=== PATIENT | female | born 1970 | race Caucasian/White ===

== ENCOUNTER 2016-07-04 11:58 | Emergency (ER) | payer MEDICAID ==
[~2016-07-04] VITALS: Ht 157.5 cm; Wt 75.3 kg
[2016-07-04 12:03] VITALS: BP_SYST 160
[2016-07-04] MEDS ORDERED: DIPHENHYDRAMINE INJ 50 MG/ML VIAL IVP ONE (12:30)
[2016-07-04] MEDS ORDERED: MORPHINE 4 MG/ML INJ. SYRINGE IVP ONE (12:30)
[2016-07-04] MEDS ORDERED: PIPERACILLIN/TAZO 3.38 GM in NS 50 ML IV ONE (12:30)
[2016-07-04] MEDS ORDERED: PIPERACILLIN/TAZOBACTAM 3.375 GM/VIAL (ZOSYN) IV ONE (12:52)
[2016-07-04 12:58] LABS: BILIRUBIN,URINE NEGATIVE (NEGATIVE); CLARITY/URINE CLEAR (CLEAR); COLOR,URINE YELLOW (YELLOW); GLUCOSE,URINE TRACE (NEGATIVE); KETONES,URINE 1+ (NEGATIVE); LEUKOCYTE ESTERASE ,URINE NEGATIVE (NEGATIVE); NITRITE, URINE NEGATIVE (NEGATIVE); PROTEIN URINE NEGATIVE (NEGATIVE); UROBILINOGEN,URINE 0.2 (0.2-1.0)
[2016-07-04 13:02] LABS: BLOOD, URINE TRACE (NEGATIVE)
[2016-07-04 13:08] LABS: BASOPHILS # (AUTO) 0.1 K/uL (0.0-0.2); BASOPHILS % (AUTO) 1.2 % (0.0-2.0); EOSINOPHILS # (AUTO) 0.3 K/uL (0.0-0.4); EOSINOPHILS % (AUTO) 2.8 % (0.0-4.0); HEMATOCRIT 43.3 % (36-48); HEMOGLOBIN 14.5 g/dL (12.0-16.0); LYMPHOCYTES # (AUTO) 3.2 K/uL (1.0-5.5); LYMPHOCYTES % (AUTO) 28.6 % (20.5-51.5); MEAN CORPUSCULAR HEMOGLOBIN 30 pg (27-31); MEAN CORPUSCULAR HGB CONC 34 % (32-36); MEAN CORPUSCULAR VOLUME 88 fL (79.0-98.0); MONOCYTES # (AUTO) 0.5 K/uL (0.0-1.0); MONOCYTES % (AUTO) 4.6 % (1.7-9.3); NEUTROPHILS # (AUTO) 7.2 K/uL (1.8-7.7); NEUTROPHILS % (AUTO) 62.8 % (40.0-70.0); PLATELET COUNT (AUTO) 316 K/uL (130-430); RED BLOOD CELL COUNT(AUTO) 4.92 MIL/uL (4.2-6.2); RED CELL DISTRIBUTION WIDTH 12.9 % (9.0-15.0); WHITE BLOOD COUNT (AUTO) 11.3 K/uL (4.8-10.8)
[2016-07-04 13:10] LABS: BACTERIA,URINE FEW /HPF (None Seen); MUCUS,URINE 1+ /LPF (None Seen); WBC,URINE 0-3 /HPF (0-3)
[2016-07-04 13:20] LABS: CALCIUM 9.2 mg/dL (8.4-11.0); CREATININE 0.69 mg/dL (0.55-1.30); PROTHROMBIN TIME 10.5 SECS (9.5-12.5)
[2016-07-04 13:25] LABS: ALBUMIN 3.7 g/dL (3.4-4.8); TOTAL BILIRUBIN 0.6 mg/dL (0.0-1.0)
[2016-07-04 14:10] VITALS: BP_SYST 160
== END 2016-07-04 14:10 | disposition home or self-care (01) ==
LOC: SED 11:58
DX: R10.11 Right upper quadrant pain (principal); E11.9 Type 2 diabetes mellitus without complications; I10 Essential (primary) hypertension; E78.00 Pure hypercholesterolemia, unspecified; Z88.2 Allergy status to sulfonamides; Z91.02 Food additives allergy status; Z98.51 Tubal ligation status
CPT/HCPCS: 36415; 71010; 74176; 80053; 81000; 83605; 83690; 85025; 85610; 87040; 93005; 96365; 96375; 99285; J1200; J2270; J2543

== ENCOUNTER 2016-07-21 08:53 | Emergency (ER) | payer MEDICAID ==
[~2016-07-21] VITALS: Ht 157.5 cm; Wt 59.0 kg
[2016-07-21 09:02] VITALS: BP_SYST 129
--- NOTE | 2016-07-21 09:06 | NUR ---
Pt to bed 4
--- NOTE | 2016-07-21 09:09 | NUR ---
invasive cardiovascular technologist at bedside performing xray to rt foot
--- NOTE | 2016-07-21 09:11 | NUR ---
Pt presents to ED with Rt foot pain to 3rd, 4th, 5th toe. Pt reports falling last night but does not remember hitting her foot. Denies loss of consciousness. Denies head/neck injury or pain. No deformity, no redness, no swelling to rt foot toes. Able to wiggle toes. No acute distress. No other complaints/injuries per pt or noted.
--- NOTE | 2016-07-21 09:13 | NUR ---
Dr. Durbin at bedside examining patient. Also speaking with patient regarding recent narcotic prescription fills.
[2016-07-21 09:45] VITALS: BP_SYST 123
--- NOTE | 2016-07-21 09:45 | NUR ---
Patient given written and verbal discharge instructions and verbalizes understanding. ER MD discussed with patient the results and treatment provided. Patient in stable condition. ID arm band removed. No Rx given. Pt has newly filled [place] and tramadol at home. Patient educated on pain management and to follow up with PMD. Pain Scale 3/10 and tolerable. Ortho shoe placed to Rt foot. Opportunity for questions provided and answered.
== END 2016-07-21 09:45 | disposition home or self-care (01) ==
LOC: SED 08:53
DX: S90.121A Contusion of right lesser toe(s) without damage to nail, initial encounter (principal); E11.9 Type 2 diabetes mellitus without complications; I10 Essential (primary) hypertension; E78.00 Pure hypercholesterolemia, unspecified; Z91.02 Food additives allergy status; Z88.2 Allergy status to sulfonamides; W18.49XA Other slipping, tripping and stumbling without falling, initial encounter; Y93.89 Activity, other specified; Y92.89 Other specified places as the place of occurrence of the external cause; Y99.8 Other external cause status
CPT/HCPCS: 99284

== ENCOUNTER 2016-08-15 19:50 | Emergency (ER) | payer MEDICAID ==
[~2016-08-15] VITALS: Ht 157.5 cm; Wt 70.8 kg
[2016-08-15 20:03] VITALS: BP_SYST 129
[2016-08-15] MEDS ORDERED: HYDROcodone/ACETAMIN 5-325 MG TAB (NORCO/ VICODIN) PO ONE (20:30)
[2016-08-15 21:14] VITALS: BP_SYST 154
== END 2016-08-15 21:14 | disposition home or self-care (01) ==
LOC: SED 19:50
DX: R52 Pain, unspecified (principal); E11.9 Type 2 diabetes mellitus without complications; I10 Essential (primary) hypertension; E78.00 Pure hypercholesterolemia, unspecified; Z88.2 Allergy status to sulfonamides; Z91.02 Food additives allergy status; Z98.51 Tubal ligation status
CPT/HCPCS: 99283

== ENCOUNTER 2016-09-10 18:18 | Emergency (ER) | payer MEDICAID ==
[~2016-09-10] VITALS: Ht 157.5 cm; Wt 74.4 kg
[2016-09-10 18:23] VITALS: BP 148/64; PULSE 97; RESP 20; TEMP 97.8; O2SAT 98
--- NOTE | 2016-09-10 18:28 | NUR ---
Pt placed to ER waiting room in stable condition. Urine specimen collected and sent to lab.
[2016-09-10 19:03] LABS: BILIRUBIN,URINE NEGATIVE (NEGATIVE); BLOOD, URINE 3+ (NEGATIVE); CLARITY/URINE CLOUDY (CLEAR); COLOR,URINE YELLOW (YELLOW); GLUCOSE,URINE NEGATIVE (NEGATIVE); KETONES,URINE NEGATIVE (NEGATIVE); LEUKOCYTE ESTERASE ,URINE TRACE (NEGATIVE); NITRITE, URINE POSITIVE (NEGATIVE); PH,URINE 5.5 (5.0-8.0); PROTEIN URINE 2+ (NEGATIVE); UROBILINOGEN,URINE 0.2 (0.2-1.0)
[2016-09-10 19:14] LABS: BACTERIA,URINE MODERATE /HPF (None Seen); RBC,URINE 20-50 /HPF (0-3); WBC,URINE 20-50 /HPF (0-3)
[2016-09-10 19:15] LABS: MUCUS,URINE 1+ /LPF (None Seen)
--- NOTE | 2016-09-10 19:27 | NUR ---
Patient to [facility] for evaluation. Side rails up. Report given to Wade ALVARADO.
--- NOTE | 2016-09-10 19:30 | NUR ---
PT IN [facility] WITH COMPLAINTS OF UTI SYMPTOMS. DR REGI SHARMA.
--- NOTE | 2016-09-10 19:40 | NUR ---
ER at [facility] with pt in wheelchair examining patient.
[2016-09-10 19:50] VITALS: BP 138/78; PULSE 89; RESP 18; TEMP 97.8; O2SAT 98
--- NOTE | 2016-09-10 19:59 | NUR ---
Patient given written and verbal discharge instructions and verbalizes understanding. ER MD dudley discussed with patient the results provided. Patient in stable condition. ID arm band removed. . Rx of pyridium and nitrofurantoin given. Patient educated on pain management and to follow up with PMD. Pain Scale 1/10. Opportunity for questions provided and answered.
--- NOTE | 2016-09-12 13:20 | NUR ---
Final C & S report reviewed identified organism is suseptible to Macrobid as previously prescribed. No further action is indicated.
== END 2016-09-10 19:50 | disposition home or self-care (01) ==
LOC: SED 18:18
DX: N39.0 Urinary tract infection, site not specified (principal); R31.9 Hematuria, unspecified; E11.9 Type 2 diabetes mellitus without complications; I10 Essential (primary) hypertension; E78.00 Pure hypercholesterolemia, unspecified; Z88.2 Allergy status to sulfonamides; Z91.02 Food additives allergy status; Z98.51 Tubal ligation status
CPT/HCPCS: 81000-TC; 87086; 87186-TC; 99284

== ENCOUNTER 2016-10-16 11:05 | Emergency (ER) | payer MEDICAID ==
[~2016-10-16] VITALS: Ht 157.5 cm; Wt 78.0 kg
[2016-10-16 11:09] VITALS: BP_SYST 156
[2016-10-16 11:35] LABS: BILIRUBIN,URINE NEGATIVE (NEGATIVE); BLOOD, URINE 3+ (NEGATIVE); CLARITY/URINE SL CLOUDY (CLEAR); COLOR,URINE YELLOW (YELLOW); GLUCOSE,URINE 3+ (NEGATIVE); KETONES,URINE 3+ (NEGATIVE); LEUKOCYTE ESTERASE ,URINE TRACE (NEGATIVE); NITRITE, URINE POSITIVE (NEGATIVE); PH,URINE 5.5 (5.0-8.0); PROTEIN URINE 2+ (NEGATIVE); UROBILINOGEN,URINE 0.2 (0.2-1.0)
[2016-10-16 11:43] LABS: BACTERIA,URINE MODERATE /HPF (None Seen); RBC,URINE 20-50 /HPF (0-3); YEAST,URINE Few /HPF (None Seen)
[2016-10-16] MEDS ORDERED: DIPHENHYDRAMINE INJ 50 MG/ML VIAL IVP ONE (12:00)
[2016-10-16] MEDS ORDERED: MORPHINE 4 MG/ML INJ. SYRINGE IVP ONE (12:00)
[2016-10-16] MEDS ORDERED: PIPERACILLIN/TAZO 3.38 GM in NS 50 ML IV ONE (12:00)
[2016-10-16] MEDS ORDERED: PIPERACILLIN/TAZOBACTAM 3.375 GM/VIAL (ZOSYN) IV ONE (12:40)
[2016-10-16 12:50] LABS: BASOPHILS # (AUTO) 0.1 K/uL (0.0-0.2); BASOPHILS % (AUTO) 0.6 % (0.0-2.0); EOSINOPHILS # (AUTO) 0.2 K/uL (0.0-0.4); EOSINOPHILS % (AUTO) 1.4 % (0.0-4.0); HEMATOCRIT 42.9 % (36-48); LYMPHOCYTES # (AUTO) 2.9 K/uL (1.0-5.5); LYMPHOCYTES % (AUTO) 24.3 % (20.5-51.5); MEAN CORPUSCULAR HEMOGLOBIN 29 pg (27-31); MEAN CORPUSCULAR HGB CONC 33 % (32-36); MEAN CORPUSCULAR VOLUME 90 fL (79.0-98.0); MONOCYTES # (AUTO) 0.6 K/uL (0.0-1.0); MONOCYTES % (AUTO) 5.1 % (1.7-9.3); NEUTROPHILS # (AUTO) 8.3 K/uL (1.8-7.7); NEUTROPHILS % (AUTO) 68.6 % (40.0-70.0); PLATELET COUNT (AUTO) 361 K/uL (130-430); RED BLOOD CELL COUNT(AUTO) 4.77 MIL/uL (4.2-6.2); RED CELL DISTRIBUTION WIDTH 13.2 % (9.0-15.0); WHITE BLOOD COUNT (AUTO) 12.1 K/uL (4.8-10.8)
[2016-10-16 12:55] LABS: CALCIUM 8.6 mg/dL (8.4-11.0); CREATININE 0.64 mg/dL (0.55-1.30)
[2016-10-16 12:57] LABS: PROTHROMBIN TIME 10.5 SECS (9.5-12.5)
[2016-10-16 13:12] LABS: ALBUMIN 3.9 g/dL (3.4-4.8); TOTAL BILIRUBIN 0.6 mg/dL (0.0-1.0); TOTAL PROTEIN, SERUM 8.1 g/dL (6.4-8.3)
[2016-10-16 14:32] VITALS: BP_SYST 142
== END 2016-10-16 14:31 | disposition home or self-care (01) ==
LOC: SED 11:05
DX: N39.0 Urinary tract infection, site not specified (principal); E11.40 Type 2 diabetes mellitus with diabetic neuropathy, unspecified; I10 Essential (primary) hypertension; E78.00 Pure hypercholesterolemia, unspecified; Z88.2 Allergy status to sulfonamides; Z91.018 Allergy to other foods
CPT/HCPCS: 36415; 74176; 80053; 81000; 83605; 83690; 85025; 85610; 87040; 87086; 87186; 93005; 96365; 96375; 99285; J1200; J2270; J2543

== ENCOUNTER 2016-12-26 00:42 | Emergency (ER) | payer MEDICAID ==
[~2016-12-26] VITALS: Ht 157.5 cm; Wt 72.6 kg
[2016-12-26 01:30] VITALS: BP_SYST 157
--- NOTE | 2016-12-26 01:30 | NUR ---
Patient to ER bed 3 to gown for evaluation. Side rails up. Report given to JENNY CALL.
--- NOTE | 2016-12-26 01:39 | NUR ---
Patient to ER C/O animal bite to left hand. Patient states that she got bit while trying to save another smaller dog. Patient refuses to provide more information regarding the animal bite. Superficial puncture wounds to left hand, no bleeding, reddness surrounding the puncture wounds. C/O pain 10/23. AAOx4, unlabored breathing, no signs of acute distress.
--- NOTE | 2016-12-26 01:42 | NUR ---
Patient refuses to file a dog bite complaint. Patient refuses to provide information about the place of injury, dog information, dog's data conversion analyst info. Patient states "i know for sure that the dog has all the shots" Patient advised that if at any time she changes her mind, she can file a report through the [facility] animal bite report.
--- NOTE | 2016-12-26 01:46 | NUR ---
ER MD Cody at bedside for evaluation
[2016-12-26] MEDS ORDERED: ceFAZolin SODIUM 1 GM VIAL IM ONE (02:00)
[2016-12-26] MEDS ORDERED: DIPH-TET-PERTUS Vaccine 0.5 ML VIAL (ADACEL) IM ONE (02:00)
[2016-12-26] MEDS ORDERED: BACITRACIN 1 GM OINT TP ONE (02:00)
--- NOTE | 2016-12-26 02:20 | NUR ---
15 minutes after administration of ancef, TDAP & bacitracin. No adverse reactions noted. Will continue to monitor.
[2016-12-26] MEDS ORDERED: KETOROLAC TROMETHAMINE 60 MG/2 ML VIAL IM ONE (02:30)
--- NOTE | 2016-12-26 02:40 | NUR ---
Patient reports pain 3/10 15 minutes after administration of todadol. No adverse reactions noted. Will continue to monitor.
[2016-12-26 03:08] VITALS: BP_SYST 119
--- NOTE | 2016-12-26 03:08 | NUR ---
Patient given written and verbal discharge instructions and verbalizes understanding. ER MD Cody discussed with patient the results and treatment provided. Patient in stable condition. ID arm band removed. Rx of ibuprofen & augmentin given. Patient educated on pain management and to follow up with PMD. Pain Scale 0/10. Opportunity for questions provided and answered.
== END 2016-12-26 03:08 | disposition home or self-care (01) ==
LOC: SED 00:42
DX: S61.452A Open bite of left hand, initial encounter (principal); E11.9 Type 2 diabetes mellitus without complications; I10 Essential (primary) hypertension; M79.7 Fibromyalgia; E78.00 Pure hypercholesterolemia, unspecified; Z88.2 Allergy status to sulfonamides; W54.0XXA Bitten by dog, initial encounter; Y93.89 Activity, other specified; Y92.89 Other specified places as the place of occurrence of the external cause; Y99.8 Other external cause status
CPT/HCPCS: 90471; 90715; 96372; 99284; J0690; J1885

== ENCOUNTER 2017-03-14 10:48 | Emergency (ER) | payer MEDICAID ==
[~2017-03-14] VITALS: Ht 157.5 cm; Wt 74.8 kg
[2017-03-14 10:51] VITALS: BP_SYST 146
[2017-03-14 11:36] LABS: BILIRUBIN,URINE NEGATIVE (NEGATIVE); BLOOD, URINE NEGATIVE (NEGATIVE); CLARITY/URINE CLEAR (CLEAR); COLOR,URINE YELLOW (YELLOW); GLUCOSE,URINE 3+ (NEGATIVE); KETONES,URINE TRACE (NEGATIVE); LEUKOCYTE ESTERASE ,URINE NEGATIVE (NEGATIVE); NITRITE, URINE NEGATIVE (NEGATIVE); PROTEIN URINE NEGATIVE (NEGATIVE); UROBILINOGEN,URINE 0.2 (0.2-1.0)
[2017-03-14 11:44] LABS: BACTERIA,URINE RARE /HPF (None Seen); MUCUS,URINE 1+ /LPF (None Seen); RBC,URINE 0-3 /HPF (0-3); WBC,URINE 0-3 /HPF (0-3)
[2017-03-14 12:07] VITALS: BP_SYST 130
== END 2017-03-14 12:07 | disposition home or self-care (01) ==
LOC: SED 10:48
DX: S39.011A Strain of muscle, fascia and tendon of abdomen, initial encounter (principal); E11.40 Type 2 diabetes mellitus with diabetic neuropathy, unspecified; I10 Essential (primary) hypertension; E78.00 Pure hypercholesterolemia, unspecified; Z88.2 Allergy status to sulfonamides; Z98.51 Tubal ligation status; Z91.02 Food additives allergy status; X58.XXXA Exposure to other specified factors, initial encounter; Y93.89 Activity, other specified; Y92.89 Other specified places as the place of occurrence of the external cause; Y99.8 Other external cause status
CPT/HCPCS: 81000-TC; 81025; 99283

== ENCOUNTER 2017-05-08 02:29 | Emergency (ER) | payer MEDICAID ==
[~2017-05-08] VITALS: Ht 157.5 cm; Wt 70.3 kg
[2017-05-08 02:30] VITALS: BP_SYST 154
--- NOTE | 2017-05-08 02:30 | NUR ---
Pt states that around 0200, pt started having SOB with chest pain. She has been recently sick and has had a productive cough for about a month. Pt reports chest wall tenderness and pain with inspiration. Pt was very anxious and tearful. Lung sounds clear bilateraly. Will continue to monitor.
--- NOTE | 2017-05-08 02:30 | NUR ---
Patient to ER bed 4 to gown for evaluation. Side rails up. Report given to Octavio ALVARADO.
--- NOTE | 2017-05-08 02:32 | NUR ---
ER Dr. Fong at bedside examining patient.
--- NOTE | 2017-05-08 02:58 | NUR ---
# 20 gauge angiocath placed to L wrist. Use of asceptic technique. Opsite placed over site. Blood return noted. Flushed with 10 cc of normal saline. No evidence of infiltration noted. Patient tolerated well.
[2017-05-08] MEDS: MAGNESIUM SULFATE 50 ML IV ONE (03:02)
[2017-05-08] MEDS: PROMETHAZINE HCL 25 MG/ML AMP IVP ONE (03:03)
[2017-05-08] MEDS: KETOROLAC TROMETHAMINE 30 MG VIAL IVP ONE (03:03)
[2017-05-08] MEDS: NACL 0.9% 1,000 ML IV ONE ×2 (03:04→03:34)
[2017-05-08 03:08] LABS: MEAN CORPUSCULAR HEMOGLOBIN 29 pg (27-31); MEAN CORPUSCULAR VOLUME 88 fL (79.0-98.0)
[2017-05-08 03:11] LABS: BASOPHILS % (AUTO) 0.2 % (0.0-2.0); HEMATOCRIT 44.5 % (36-48); HEMOGLOBIN 14.9 g/dL (12.0-16.0); LYMPHOCYTES # (AUTO) 1.3 K/uL (1.0-5.5); LYMPHOCYTES % (AUTO) 11.2 % (20.5-51.5); MEAN CORPUSCULAR HGB CONC 34 % (32-36); MONOCYTES # (AUTO) 0.1 K/uL (0.0-1.0); MONOCYTES % (AUTO) 0.5 % (1.7-9.3); NEUTROPHILS # (AUTO) 10.3 K/uL (1.8-7.7); NEUTROPHILS % (AUTO) 88.1 % (40.0-70.0); PLATELET COUNT (AUTO) 370 K/uL (130-430); RED BLOOD CELL COUNT(AUTO) 5.06 MIL/uL (4.2-6.2); RED CELL DISTRIBUTION WIDTH 12.5 % (9.0-15.0); WHITE BLOOD COUNT (AUTO) 11.7 K/uL (4.8-10.8)
[2017-05-08 03:16] LABS: ANION GAP 15 (5-15); CALCIUM 9.2 mg/dL (8.4-11.0); CHLORIDE 100 mmol/L (98-107); CREATININE 0.92 mg/dL (0.55-1.30); POTASSIUM 3.9 mmol/L (3.5-5.1); SODIUM SERUM 137 mmol/L (136-145); UREA NITROGEN, BLOOD 17 mg/dL (8-21)
[2017-05-08 03:19] LABS: GFR AFRICAN AMERICAN 84 mL/min (>90)
[2017-05-08 03:21] LABS: INR 0.9 (0.8-1.2); PROTHROMBIN TIME 9.6 SECS (9.5-12.5)
[2017-05-08 03:25] LABS: ALANINE AMINOTRANSFERASE 85 U/L (12-78); ALBUMIN 3.7 g/dL (3.4-4.8); ASPARTATE AMINOTRANSFERASE 54 U/L (10-37); TOTAL BILIRUBIN 0.4 mg/dL (0.0-1.0)
[2017-05-08 03:26] LABS: GLUCOSE 468 mg/dL (70-99)
[2017-05-08] MEDS: INSULIN REGULAR, HUMAN 10 UNITS/0.1 ML INJ IVP ONE (05:15)
[2017-05-08 05:55] VITALS: BP_SYST 127
--- NOTE | 2017-05-08 05:55 | NUR ---
Patient given written and verbal discharge instructions and verbalizes understanding. ER MD discussed with patient the results and treatment provided. Patient in stable condition. ID arm band removed. IV catheter removed intact and dressing applied, no active bleeding. Rx of Phenergan with codeine given. Patient educated on pain management and to follow up with PMD. Pain Scale 0/10. Opportunity for questions provided and answered.
--- NOTE | 2017-05-16 19:29 | NUR ---
Late entry for 05/08/17 for 0302. Pt was getting Magnesium for two hours IVPB running at 25 mls/hr at 0302 to 0502.
== END 2017-05-08 05:55 | disposition home or self-care (01) ==
LOC: SED 02:29
DX: J06.9 Acute upper respiratory infection, unspecified (principal); E11.65 Type 2 diabetes mellitus with hyperglycemia; J45.909 Unspecified asthma, uncomplicated; I10 Essential (primary) hypertension; E78.00 Pure hypercholesterolemia, unspecified; Z88.2 Allergy status to sulfonamides; Z91.018 Allergy to other foods
CPT/HCPCS: 36415; 71045; 80053; 82962; 84484; 85025; 85610; 85730; 86710; 93005; 96365; 96366; 96375; 99285; J1885; J2550; J3475; J7030; J1815

== ENCOUNTER 2017-12-21 02:00 | Emergency (ER) | payer MEDICAID ==
[~2017-12-21] VITALS: Ht 157.5 cm; Wt 74.8 kg
[2017-12-21 02:08] VITALS: BP_SYST 153
[2017-12-21] MEDS ORDERED: KETOROLAC TROMETHAMINE 30 MG VIAL IM ONE (02:45)
[2017-12-21] MEDS ORDERED: HYDROcodone/ACETAMIN 7.5-325 MG TAB PO ONE (02:45)
[2017-12-21 03:15] VITALS: BP_SYST 140
== END 2017-12-21 03:15 | disposition home or self-care (01) ==
LOC: SED 02:00
DX: S93.601A Unspecified sprain of right foot, initial encounter (principal); I10 Essential (primary) hypertension; M79.7 Fibromyalgia; E11.40 Type 2 diabetes mellitus with diabetic neuropathy, unspecified; E78.5 Hyperlipidemia, unspecified; Z98.51 Tubal ligation status; X50.1XXA Overexertion from prolonged static or awkward postures, initial encounter; Y93.01 Activity, walking, marching and hiking; Y92.096 Garden or yard of other non-institutional residence as the place of occurrence of the external cause; Y99.8 Other external cause status
CPT/HCPCS: 73630; 96372; 99284; J1885

== ENCOUNTER 2018-12-27 13:20 | Emergency (ER) | payer MEDICAID ==
[~2018-12-27] VITALS: Ht 157.5 cm; Wt 77.6 kg
[2018-12-27 13:29] VITALS: BP_SYST 149
--- NOTE | 2018-12-27 13:36 | NUR ---
Patient to ER bed 2 to gown for evaluation. Side rails up. Report given to CHAIM ALVARADO.
[2018-12-27] MEDS ORDERED: CYCLOBENZAPRINE HCL 10 MG TABLET (FLEXERIL) PO ONE (13:45)
[2018-12-27] MEDS ORDERED: KETOROLAC TROMETHAMINE 30 MG VIAL IM ONE (13:45)
--- NOTE | 2018-12-27 13:45 | NUR ---
Patient presented to ER with C/O Neck pain. Patient A&Ox4, afebrile, ambulatory to ER, denies N/V/D, pain 01/23. Patient states neck pain started last night. Patient states health hx of fibromyalgia and chronic pain
--- NOTE | 2018-12-27 13:50 | NUR ---
REGINALDO Cuevas at bedside examining patient.
[2018-12-27] MEDS ORDERED: MORPHINE 4 MG/ML INJ. SYRINGE IVP ONE (14:30)
[2018-12-27 15:25] VITALS: BP_SYST 149
--- NOTE | 2018-12-27 15:25 | NUR ---
Patient given written and verbal discharge instructions and verbalizes understanding. ER MD discussed with patient the results and treatment provided. Patient in stable condition. ID arm band removed. IV catheter removed intact and dressing applied, no active bleeding. Rx of naproxen given. Patient educated on pain management and to follow up with PMD. Pain Scale 6/10 tolerable for patient. Opportunity for questions provided and answered. Medication side effect fact sheet provided.
--- NOTE | 2018-12-27 16:40 | NUR ---
Note undone in EDM - 12/27/18 at 1724 by [email or web address] Patient given written and verbal discharge instructions and verbalizes understanding. ER discussed with patient the results and treatment provided. Patient in stable condition. ID arm band removed. IV catheter removed intact and dressing applied, no active bleeding. Rx of naproxen given. Patient educated on pain management and to follow up with PMD. Pain Scale 6/10 tolerable for patient. Opportunity for questions provided and answered. Medication side effect fact sheet provided.
== END 2018-12-27 15:25 | disposition home or self-care (01) ==
LOC: SED 13:20
DX: M54.2 Cervicalgia (principal); E11.9 Type 2 diabetes mellitus without complications; I10 Essential (primary) hypertension; E78.00 Pure hypercholesterolemia, unspecified; Z88.2 Allergy status to sulfonamides; Z91.018 Allergy to other foods
CPT/HCPCS: 96372; 96374; 99283; J1885; J2270

== ENCOUNTER 2020-09-24 23:43 | Emergency (ER) | payer MEDICAID ==
[~2020-09-24] VITALS: Ht 157.5 cm; Wt 77.6 kg
[2020-09-24 23:50] VITALS: BP_SYST 159
[2020-09-25] MEDS ORDERED: MORPHINE 2 MG/ML INJ. SYRINGE IVP ONE (04:15)
[2020-09-25] MEDS ORDERED: MORPHINE 2 MG/ML INJ. SYRINGE IM ONE (04:45)
[2020-09-25 05:55] VITALS: BP_SYST 122
== END 2020-09-25 05:55 | disposition home or self-care (01) ==
LOC: SED 23:43
DX: S09.90XA Unspecified injury of head, initial encounter (principal); I10 Essential (primary) hypertension; E11.9 Type 2 diabetes mellitus without complications; J45.909 Unspecified asthma, uncomplicated; Z88.2 Allergy status to sulfonamides; Z91.018 Allergy to other foods; W01.10XA Fall on same level from slipping, tripping and stumbling with subsequent striking against unspecified object, initial encounter; Y93.89 Activity, other specified; Y92.89 Other specified places as the place of occurrence of the external cause; Y99.8 Other external cause status
CPT/HCPCS: 70450; 70486; 71045; 72125; 76376; 96372; 99285; J2270

== ENCOUNTER 2021-01-05 18:09 | Emergency (ER) | payer MEDICAID ==
[~2021-01-05] VITALS: Ht 157.5 cm; Wt 78.9 kg
[2021-01-05 18:20] VITALS: BP_SYST 160
--- NOTE | 2021-01-05 18:25 | NUR ---
Pt triaged and placed in waiting room
--- NOTE | 2021-01-05 19:31 | NUR ---
Patient to ER bed H1 to gown for evaluation. Side rails up. Report given to LOYDA ALVARADO.
--- NOTE | 2021-01-05 19:33 | NUR ---
Urine specimen obtained and sent to lab for analysis.
--- NOTE | 2021-01-05 19:35 | NUR ---
Pt AAO and ambulatory reporting sudden onset of abdominal pain that radiates to left flank area that started at lunch time today. Pt reports that she was seen at the urgent care and referred here. Pt is Covid vaccinated and reports having nausea and vomiting for the past two days. Pt reports current pain level 10/10 on pain scale. Pt has history of HTN, DM, neuropathy, fibromyalgia, and shingles.
--- NOTE | 2021-01-05 19:50 | NUR ---
Lab at bedside for blood draw.
[2021-01-05 19:51] LABS: BILIRUBIN,URINE 1+ (NEGATIVE); BLOOD, URINE NEGATIVE (NEGATIVE); COLOR,URINE YELLOW (YELLOW); GLUCOSE,URINE NEGATIVE (NEGATIVE); KETONES,URINE NEGATIVE (NEGATIVE); LEUKOCYTE ESTERASE ,URINE NEGATIVE (NEGATIVE); NITRITE, URINE NEGATIVE (NEGATIVE); PH,URINE 5.5 (5.0-8.0); PROTEIN URINE NEGATIVE (NEGATIVE); UROBILINOGEN,URINE 0.2 (0.2-1.0)
[2021-01-05 20:01] LABS: BASOPHILS # (AUTO) 0.1 K/uL (0.0-0.2); BASOPHILS % (AUTO) 0.4 % (0.0-2.0); EOSINOPHILS # (AUTO) 0.2 K/uL (0.0-0.4); EOSINOPHILS % (AUTO) 1.5 % (0.0-4.0); HEMATOCRIT 39.4 % (36-48); HEMOGLOBIN 13.1 g/dL (12.0-16.0); LYMPHOCYTES # (AUTO) 1.6 K/uL (1.0-5.5); LYMPHOCYTES % (AUTO) 12.3 % (20.5-51.5); MEAN CORPUSCULAR HEMOGLOBIN 30 pg (27-31); MEAN CORPUSCULAR HGB CONC 33 % (32-36); MEAN CORPUSCULAR VOLUME 90 fL (79.0-98.0); MONOCYTES # (AUTO) 0.5 K/uL (0.0-1.0); NEUTROPHILS # (AUTO) 10.6 K/uL (1.8-7.7); NEUTROPHILS % (AUTO) 81.8 % (40.0-70.0); PLATELET COUNT (AUTO) 371 K/uL (130-430); RED BLOOD CELL COUNT(AUTO) 4.39 MIL/uL (4.2-6.2); RED CELL DISTRIBUTION WIDTH 13.9 % (9.0-15.0)
--- NOTE | 2021-01-05 20:05 | NUR ---
Dr. Broussard at bedside to assess.
[2021-01-05 20:15] LABS: CLARITY/URINE HAZY (CLEAR)
[2021-01-05 20:20] LABS: CREATININE 0.83 mg/dL (0.55-1.30)
[2021-01-05 20:26] LABS: ALBUMIN 3.8 g/dL (3.4-4.8); TOTAL BILIRUBIN 0.4 mg/dL (0.0-1.0)
[2021-01-05] MEDS ORDERED: KETOROLAC TROMETHAMINE 30 MG VIAL IVP ONE (20:30)
[2021-01-05 20:45] LABS: BACTERIA,URINE FEW /HPF (None Seen); MUCUS,URINE 3+ /LPF (None Seen); RBC,URINE NONE SEEN /HPF (0-3)
[2021-01-05] MEDS ORDERED: DICYCLOMINE HCL 10 MG CAPSULE PO ONE (21:00)
[2021-01-05] MEDS ORDERED: MORPHINE 4 MG INJ. 4 MG/ML VIAL IVP ONE (21:00)
[2021-01-05] MEDS ORDERED: DICYCLOMINE HCL 10 MG CAPSULE ONE (21:29)
--- NOTE | 2021-01-05 21:40 | NUR ---
Pt laying down on gurney tucked in with eyes closed. Pt appears to be resting comfortably in no distress.
[2021-01-05] MEDS ORDERED: IBUP-1969 PO (22:20)
[2021-01-05] MEDS ORDERED: DICY10CA13 PO (22:20)
[2021-01-05 22:25] VITALS: BP_SYST 160
--- NOTE | 2021-01-05 22:25 | NUR ---
Patient given written and verbal discharge instructions and verbalizes understanding. Dr. Bobo HAIR MD discussed with patient the results and treatment provided. Patient in stable condition. ID arm band removed. IV catheter removed intact and dressing applied, no active bleeding. Rx given per MD. Patient educated on pain management and to follow up with PMD. Pain Scale 0/10. Opportunity for questions provided and answered. Medication side effect fact sheet provided.
== END 2021-01-05 22:25 | disposition home or self-care (01) ==
LOC: SED 18:09
DX: G89.29 Other chronic pain (principal); R10.10 Upper abdominal pain, unspecified; I10 Essential (primary) hypertension; E11.9 Type 2 diabetes mellitus without complications; J45.909 Unspecified asthma, uncomplicated; Z88.2 Allergy status to sulfonamides; Z91.018 Allergy to other foods; Z79.899 Other long term (current) drug therapy
CPT/HCPCS: 36415; 80053; 81000; 81025; 83690; 85025; 96374; 96375; 99284; J1885; J2270

== ENCOUNTER 2021-02-03 22:03 | Emergency (ER) | payer MEDICAID ==
[~2021-02-03] VITALS: Ht 157.5 cm; Wt 78.0 kg
[~2021-02-03 22:03] MED LIST: DICY10CA13 PO; IBUP-1969 PO
[2021-02-03 22:05] VITALS: BP_SYST 153
--- NOTE | 2021-02-03 22:05 | NUR ---
Placed in room 6 . Placed on leather goods maker, blood pressure machine and pulse oximeter. To gown for exam. Side rails up. Report given to Tien ALVARADO.
--- NOTE | 2021-02-03 22:11 | NUR ---
ARRIVED TO ER WITH COMPLAINTS OF CP SINCE 2129 TODAY. PT WAS [employer] AND STARTED HGAVING CHEST PAIN. 01/23 PAIN. PT HAS A HISOTRY OF FIBRO MYALGIA AND WANTS TO MAKE SURE IT ISNT HEART RELATED. -MEDS HAVE BEEN TAKEN. + NAUSEA. PT IS A&OX4
--- NOTE | 2021-02-03 22:12 | NUR ---
ER at bedside examining patient.
[2021-02-03] MEDS ORDERED: KETOROLAC TROMETHAMINE 60 MG/2 ML VIAL IM ONE (22:15)
--- NOTE | 2021-02-03 22:29 | NUR ---
LAB AT BEDSIDE
--- NOTE | 2021-02-03 22:34 | NUR ---
XR AT BEDSIDE
[2021-02-03 23:05] LABS: HEMOGLOBIN 12.3 g/dL (12.0-16.0)
[2021-02-03 23:07] LABS: CALCIUM 9.2 mg/dL (8.4-11.0); CREATININE 0.82 mg/dL (0.55-1.30); POTASSIUM 3.6 mmol/L (3.5-5.1)
[2021-02-03 23:12] LABS: BASOPHILS # (AUTO) 0.1 K/uL (0.0-0.2); EOSINOPHILS # (AUTO) 0.3 K/uL (0.0-0.4); EOSINOPHILS % (AUTO) 2.3 % (0.0-4.0); HEMATOCRIT 37.3 % (36-48); LYMPHOCYTES # (AUTO) 3.7 K/uL (1.0-5.5); LYMPHOCYTES % (AUTO) 30.6 % (20.5-51.5); MEAN CORPUSCULAR HEMOGLOBIN 29 pg (27-31); MEAN CORPUSCULAR HGB CONC 33 % (32-36); MEAN CORPUSCULAR VOLUME 89 fL (79.0-98.0); MONOCYTES % (AUTO) 8.4 % (1.7-9.3); NEUTROPHILS % (AUTO) 57.7 % (40.0-70.0); PLATELET COUNT (AUTO) 363 K/uL (130-430); RED BLOOD CELL COUNT(AUTO) 4.18 MIL/uL (4.2-6.2); RED CELL DISTRIBUTION WIDTH 14.2 % (9.0-15.0); WHITE BLOOD COUNT (AUTO) 12.1 K/uL (4.8-10.8)
[2021-02-03 23:13] LABS: ALBUMIN 3.7 g/dL (3.4-4.8); TOTAL BILIRUBIN 0.2 mg/dL (0.0-1.0)
[2021-02-04] MEDS ORDERED: NAPR-690 PO (00:22)
[2021-02-04 00:31] VITALS: BP_SYST 124
--- NOTE | 2021-02-04 00:33 | NUR ---
Patient given written and verbal discharge instructions and verbalizes understanding. ER MD discussed with patient the results and treatment provided. Patient in stable condition. ID arm band removed. Rx of NAPROXEN given. Patient educated on pain management and to follow up with PMD. Pain Scale 1/10. Opportunity for questions provided and answered. Medication side effect fact sheet provided.
== END 2021-02-04 00:33 | disposition home or self-care (01) ==
LOC: SED 22:03
DX: S23.41XA Sprain of ribs, initial encounter (principal); R07.89 Other chest pain; I10 Essential (primary) hypertension; E11.9 Type 2 diabetes mellitus without complications; J45.909 Unspecified asthma, uncomplicated; E78.00 Pure hypercholesterolemia, unspecified; Z88.2 Allergy status to sulfonamides; Z91.018 Allergy to other foods; Z79.899 Other long term (current) drug therapy; X58.XXXA Exposure to other specified factors, initial encounter; Y93.89 Activity, other specified; Y92.89 Other specified places as the place of occurrence of the external cause; Y99.8 Other external cause status
CPT/HCPCS: 36415; 71045; 80053; 83880; 84484; 85025; 85379; 93005; 96372; 99285; J1885

== ENCOUNTER 2021-07-31 22:31 | Emergency (ER) | payer MEDICAID ==
[~2021-07-31] VITALS: Ht 157.5 cm; Wt 73.0 kg
[~2021-07-31 22:31] MED LIST changes: +NAPR-690 PO
[2021-07-31 22:43] VITALS: BP_SYST 143
--- NOTE | 2021-07-31 22:45 | NUR ---
Patient triaged and placed in waiting room. VS checked and patient appears in no acute distress at this time. Awaiting available bed, and MD notified of need for MSE.
--- NOTE | 2021-08-01 01:52 | NUR ---
Patient to ER bed 07 to gown for evaluation. Side rails up. Report given to JENNY SPICER
--- NOTE | 2021-08-01 02:00 | NUR ---
51 YR OLD FEMALE AOX4, AMBULATORY WITH COMPLAINT OF NECK PAIN AND RIGHT CHEST PAIN FOR 5 HPURS. PT IS VISIBLY CRYING IN PAIN, PT STATES "I AM GOING THROUGH ALOT". 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 PT REPORTS HISTORY OF DM, HIGH CHOLESTEROL, AND NEUROPATHY. MD AT THE BEDSIDE. WILL MONITOR NEEDED.
[2021-08-01] MEDS ORDERED: LORazepam 2 MG/ML VIAL IM ONE (02:30)
[2021-08-01] MEDS ORDERED: KETOROLAC TROMETHAMINE 30 MG VIAL IM ONE (02:30)
[2021-08-01] MEDS ORDERED: PRED20TA PO (03:52)
[2021-08-01] MEDS ORDERED: HYDR-3917 PO (03:52)
[2021-08-01] MEDS ORDERED: METH-634 PO (03:52)
--- NOTE | 2021-08-01 04:01 | NUR ---
pt discharged with homecare instructons and prescription. pt encouraged to avoid strenuous activities for 7 days and follow up with primary doctor. understanding verbalized. pt discharged via wheelchair to awaiting car with son. pt discharged with all belongings in stable condition.
[2021-08-01 04:05] VITALS: BP_SYST 141
== END 2021-08-01 04:05 | disposition home or self-care (01) ==
LOC: SED 22:31
DX: R07.89 Other chest pain (principal); J45.909 Unspecified asthma, uncomplicated; E11.9 Type 2 diabetes mellitus without complications; I10 Essential (primary) hypertension; Z88.2 Allergy status to sulfonamides; Z91.018 Allergy to other foods
CPT/HCPCS: 71045; 96374; 96375; 99284; J1885; J2060

== ENCOUNTER 2022-06-02 02:45 | Emergency (ER) | payer MEDICAID ==
[~2022-06-02] VITALS: Ht 157.5 cm; Wt 72.1 kg
[~2022-06-02 02:45] MED LIST changes: +HYDR-3917 PO; +METH-634 PO; +PRED20TA PO
[2022-06-02 03:00] VITALS: BP_SYST 162
--- NOTE | 2022-06-02 03:07 | NUR ---
Patient to ER bed 3 to gown for evaluation. Side rails up. Report given to Bran ALVARADO(reg).
--- NOTE | 2022-06-02 03:13 | NUR ---
ER at bedside examining patient.
[2022-06-02] MEDS ORDERED: KETOROLAC TROMETHAMINE 15 MG VIAL IVP ONE (03:15)
[2022-06-02] MEDS ORDERED: MORPHINE 4 MG INJ. 4 MG/ML VIAL IVP ONE (03:15)
[2022-06-02] MEDS ORDERED: ONDANSETRON HCL 4 MG/2 ML VIAL IVP ONE ×2 (03:15)
[2022-06-02] MEDS ORDERED: MORPHINE 4 MG INJ. 4 MG/ML VIAL IM ONE (03:30)
[2022-06-02] MEDS ORDERED: ONDANSETRON 4 MG ODT TAB PO ONE (03:30)
[2022-06-02] MEDS ORDERED: KETOROLAC TROMETHAMINE 15 MG VIAL IM ONE (03:30)
[2022-06-02 03:55] LABS: BASOPHILS # (AUTO) 0.1 K/uL (0.0-0.2); BASOPHILS % (AUTO) 0.9 % (0.0-2.0); EOSINOPHILS # (AUTO) 0.1 K/uL (0.0-0.4); EOSINOPHILS % (AUTO) 1.3 % (0.0-4.0); HEMATOCRIT 40.5 % (36-48); HEMOGLOBIN 13.7 g/dL (12.0-16.0); LYMPHOCYTES # (AUTO) 3.4 K/uL (1.0-5.5); LYMPHOCYTES % (AUTO) 32.1 % (20.5-51.5); MEAN CORPUSCULAR HEMOGLOBIN 30 pg (27-31); MEAN CORPUSCULAR HGB CONC 34 % (32-36); MEAN CORPUSCULAR VOLUME 89 fL (79.0-98.0); MONOCYTES # (AUTO) 0.7 K/uL (0.0-1.0); MONOCYTES % (AUTO) 6.9 % (1.7-9.3); NEUTROPHILS # (AUTO) 6.2 K/uL (1.8-7.7); NEUTROPHILS % (AUTO) 58.8 % (40.0-70.0); PLATELET COUNT (AUTO) 341 K/uL (130-430); RED BLOOD CELL COUNT(AUTO) 4.55 MIL/uL (4.2-6.2); WHITE BLOOD COUNT (AUTO) 10.5 K/uL (4.8-10.8)
[2022-06-02 04:12] LABS: CALCIUM 9.1 mg/dL (8.4-11.0); CREATININE 0.6 mg/dL (0.55-1.30)
[2022-06-02 04:16] LABS: ALBUMIN 3.6 g/dL (3.4-4.8); TOTAL BILIRUBIN 0.3 mg/dL (0.0-1.0)
[2022-06-02] MEDS ORDERED: TAMS-11 PO (05:20)
[2022-06-02] MEDS ORDERED: HYDR-3917 PO (05:20)
[2022-06-02] MEDS ORDERED: IBUP-1970 PO (05:20)
--- NOTE | 2022-06-02 06:32 | NUR ---
Patient given written and verbal discharge instructions and verbalizes understanding. ER MD discussed with patient the results and treatment provided. Patient in stable condition. Rx of given. Patient educated on pain management and to follow up with PMD. Pain Scale []. Opportunity for questions provided and answered. Medication side effect fact sheet provided.
== END 2022-06-02 06:29 | disposition home or self-care (01) ==
LOC: SED 02:45
DX: N20.0 Calculus of kidney (principal); R10.9 Unspecified abdominal pain; R11.10 Vomiting, unspecified; J45.909 Unspecified asthma, uncomplicated; E11.9 Type 2 diabetes mellitus without complications; I10 Essential (primary) hypertension; Z91.018 Allergy to other foods; Z88.2 Allergy status to sulfonamides; Z79.899 Other long term (current) drug therapy
CPT/HCPCS: 99285; 74176; 80053; 83690; 85025; 36415; 76376; 96372; Q0162; J1885; J2270

== ENCOUNTER 2022-06-26 17:34 | Emergency (ER) | payer MEDICAID ==
[~2022-06-26] VITALS: Ht 157.5 cm; Wt 69.4 kg
[~2022-06-26 17:34] MED LIST changes: +IBUP-1970 PO; +TAMS-11 PO
[2022-06-26 18:07] VITALS: BP_SYST 129
--- NOTE | 2022-06-26 18:11 | NUR ---
Patient triaged and placed in waiting room. VSS and patient appears in no acute distress at this time. Accompanied by self, awaiting available bed, and MD notified of need for MSE.
[2022-06-26] MEDS ORDERED: NAPR-1172 PO (20:21)
--- NOTE | 2022-06-26 20:22 | NUR ---
Patient placed in ER chair 2 for evaluation.
--- NOTE | 2022-06-26 20:24 | NUR ---
Dr. Drake at bedside examining the patient.
--- NOTE | 2022-06-26 20:28 | NUR ---
Patient given written and verbal discharge instructions by Dr. Drake and verbalizes understanding. ER MD discussed with patient the results and treatment provided. Patient in stable condition. ID arm band removed. Rx of Naproxen given. Patient educated on pain management and to follow up with PMD. Pain Scale 0/10. Opportunity for questions provided and answered. Medication side effect fact sheet provided.
--- NOTE | 2022-06-26 20:32 | NUR ---
Gina robledo in EDM - 06/26/22 at 2119 by GUILLERMO Patient placed in ER CHAIR 1 for evaluation. Instructed patient to notify ED staff for any changes in condition or worsening of symptoms. Patient verbalized understanding.
--- NOTE | 2022-06-26 20:34 | NUR ---
Gina robledo in [facility] - 06/26/[email or web address] Drake is at bedside examining the patient.
[2022-06-26 20:39] VITALS: BP_SYST 118
== END 2022-06-26 20:39 | disposition home or self-care (01) ==
LOC: SED 17:34
DX: S86.812A Strain of other muscle(s) and tendon(s) at lower leg level, left leg, initial encounter (principal); J45.909 Unspecified asthma, uncomplicated; E11.9 Type 2 diabetes mellitus without complications; I10 Essential (primary) hypertension; Z88.2 Allergy status to sulfonamides; Z91.018 Allergy to other foods; Z79.899 Other long term (current) drug therapy; X58.XXXA Exposure to other specified factors, initial encounter; Y93.89 Activity, other specified; Y92.89 Other specified places as the place of occurrence of the external cause; Y99.8 Other external cause status
CPT/HCPCS: 93970; 99284

== ENCOUNTER 2022-10-16 14:14 | Emergency (ER) | payer MEDICAID ==
[~2022-10-16] VITALS: Ht 157.5 cm; Wt 63.5 kg
[~2022-10-16 14:14] MED LIST changes: +NAPR-1172 PO
[2022-10-16 14:57] VITALS: BP_SYST 150; PULSE 71; RESP 16; TEMP 97.8
== END 2022-10-16 15:04 | disposition left against medical advice (07) ==
LOC: SED 14:14
DX: R07.89 Other chest pain (principal); J45.909 Unspecified asthma, uncomplicated; E11.9 Type 2 diabetes mellitus without complications; I10 Essential (primary) hypertension; Z88.2 Allergy status to sulfonamides; Z91.018 Allergy to other foods; Z79.899 Other long term (current) drug therapy
CPT/HCPCS: 71045; 99283

== ENCOUNTER 2022-12-05 00:20 | Emergency (ER) | payer MEDICAID ==
[~2022-12-05] VITALS: Ht 162.6 cm; Wt 61.2 kg
[2022-12-05 00:25] VITALS: BP_SYST 159; PULSE 90; RESP 16; TEMP 97.9; O2SAT 99
[2022-12-05] MEDS ORDERED: IPRATROPIUM BROM 0.5 MG/2.5 ML VIAL.NEB (ATROVENT) INH ONE (01:00)
[2022-12-05] MEDS ORDERED: predniSONE 20 MG TABLET PO ONE (01:00)
[2022-12-05] MEDS ORDERED: ALBUTEROL SULFATE 0.083% 2.5 MG/3 ML VIAL.NEB INH ONE (01:00)
[2022-12-05] MEDS ORDERED: PRED50TA PO (02:23)
[2022-12-05] MEDS ORDERED: AZIT-93 PO (02:23)
[2022-12-05 02:32] VITALS: BP_SYST 144; PULSE 88; RESP 16; TEMP 97.9; O2SAT 99
== END 2022-12-05 02:30 | disposition home or self-care (01) ==
LOC: SED 00:20
DX: J40 Bronchitis, not specified as acute or chronic (principal); R06.02 Shortness of breath; R05.9 Cough, unspecified; E11.9 Type 2 diabetes mellitus without complications; I10 Essential (primary) hypertension; Z88.2 Allergy status to sulfonamides; Z91.018 Allergy to other foods; Z79.899 Other long term (current) drug therapy
CPT/HCPCS: 93005; 71045; 99283; J7512; J7613

== ENCOUNTER 2022-12-18 10:46 | Emergency (ER) | payer MEDICAID ==
[~2022-12-18] VITALS: Ht 157.5 cm; Wt 62.1 kg
[2022-12-18 10:46] VITALS: BP_SYST 160; PULSE 66; RESP 17; TEMP 98.1; O2SAT 98
[~2022-12-18 10:46] MED LIST changes: +AZIT-93 PO; +PRED50TA PO
[2022-12-18] MEDS ORDERED: NACL 0.9% 1,000 ML IV ONE (11:15)
[2022-12-18] MEDS ORDERED: MORPHINE 4 MG INJ. 4 MG/ML VIAL IVP ONE (11:15)
[2022-12-18] MEDS ORDERED: ONDANSETRON HCL 4 MG/2 ML VIAL IVP ONE (11:15)
[2022-12-18 11:38] LABS: BASOPHILS # (AUTO) 0.1 K/uL (0.0-0.2); BASOPHILS % (AUTO) 0.9 % (0.0-2.0); EOSINOPHILS # (AUTO) 0.1 K/uL (0.0-0.4); EOSINOPHILS % (AUTO) 0.6 % (0.0-4.0); HEMATOCRIT 43.7 % (36-48); HEMOGLOBIN 14.4 g/dL (12.0-16.0); LYMPHOCYTES # (AUTO) 2.1 K/uL (1.0-5.5); LYMPHOCYTES % (AUTO) 24.3 % (20.5-51.5); MEAN CORPUSCULAR HEMOGLOBIN 30 pg (27-31); MEAN CORPUSCULAR HGB CONC 33 % (32-36); MEAN CORPUSCULAR VOLUME 91 fL (79.0-98.0); MONOCYTES # (AUTO) 0.8 K/uL (0.0-1.0); MONOCYTES % (AUTO) 9.3 % (1.7-9.3); NEUTROPHILS # (AUTO) 5.7 K/uL (1.8-7.7); NEUTROPHILS % (AUTO) 64.9 % (40.0-70.0); PLATELET COUNT (AUTO) 234 K/uL (130-430); RED BLOOD CELL COUNT(AUTO) 4.82 MIL/uL (4.2-6.2); RED CELL DISTRIBUTION WIDTH 13.6 % (9.0-15.0); WHITE BLOOD COUNT (AUTO) 8.8 K/uL (4.8-10.8)
[2022-12-18 11:51] LABS: CALCIUM 8.6 mg/dL (8.4-11.0); CREATININE 0.56 mg/dL (0.55-1.30); POTASSIUM 4.1 mmol/L (3.5-5.1)
[2022-12-18 11:55] LABS: ALBUMIN 3.4 g/dL (3.4-4.8); TOTAL BILIRUBIN 0.4 mg/dL (0.0-1.0)
[2022-12-18 12:59] LABS: CLARITY/URINE CLEAR (CLEAR); COLOR,URINE YELLOW (YELLOW); PROTEIN URINE TRACE (NEGATIVE)
[2022-12-18 13:00] LABS: BILIRUBIN,URINE NEGATIVE (NEGATIVE); BLOOD, URINE TRACE (NEGATIVE); GLUCOSE,URINE 2+ (NEGATIVE); KETONES,URINE 3+ (NEGATIVE); LEUKOCYTE ESTERASE ,URINE NEGATIVE (NEGATIVE); NITRITE, URINE NEGATIVE (NEGATIVE); UROBILINOGEN,URINE 0.2 (0.2-1.0)
[2022-12-18 13:02] LABS: BACTERIA,URINE None Seen /HPF (None Seen); RBC,URINE 0-3 /HPF (0-3); WBC,URINE NONE SEEN /HPF (0-3)
[2022-12-18] MEDS ORDERED: AMOX-423 PO (13:39)
[2022-12-18] MEDS ORDERED: TRAM50TA2 PO (13:39)
[2022-12-18 16:27] VITALS: BP_SYST 134; PULSE 72; RESP 16; TEMP 97.7; O2SAT 99
== END 2022-12-18 14:03 | disposition home or self-care (01) ==
LOC: SED 10:46
DX: R10.32 Left lower quadrant pain (principal); K59.00 Constipation, unspecified; R11.0 Nausea; J45.909 Unspecified asthma, uncomplicated; E11.9 Type 2 diabetes mellitus without complications; I10 Essential (primary) hypertension; Z88.2 Allergy status to sulfonamides; Z91.018 Allergy to other foods; Z79.899 Other long term (current) drug therapy
CPT/HCPCS: 99285; 74176; 96374; 96361; 96375; 80053; 81000; 83690; 85025; 36415; 76376; 81025; J2405; J2270; J7030

== ENCOUNTER 2022-12-24 11:30 | Emergency (ER) | payer MEDICAID ==
[~2022-12-24] VITALS: Ht 157.5 cm; Wt 62.1 kg
[2022-12-24 11:30] VITALS: BP_SYST 122; PULSE 85; RESP 17; TEMP 97.6; O2SAT 99
[~2022-12-24 11:30] MED LIST changes: +AMOX-423 PO; +DICY-14 PO; -DICY10CA13 PO; +TRAM50TA2 PO
[2022-12-24] MEDS ORDERED: POLYETHYLENE GLYCOL 3350, 17 GM/ POWD.PACK PO ONE (12:00)
[2022-12-24] MEDS ORDERED: LACTULOSE 20 GM/30 ML UDC PO ONE (12:00)
[2022-12-24] MEDS ORDERED: DOCUSATE SODIUM 100 MG CAPSULE PO ONE (12:00)
[2022-12-24] MEDS ORDERED: NACL 0.9% 1,000 ML IV ONE (13:15)
[2022-12-24] MEDS ORDERED: ONDANSETRON HCL 4 MG/2 ML VIAL IVP ONE (13:15)
[2022-12-24] MEDS ORDERED: KETOROLAC TROMETHAMINE 30 MG VIAL IVP ONE (13:15)
[2022-12-24 14:03] LABS: BASOPHILS # (AUTO) 0.1 K/uL (0.0-0.2); BASOPHILS % (AUTO) 0.5 % (0.0-2.0); EOSINOPHILS # (AUTO) 0.2 K/uL (0.0-0.4); EOSINOPHILS % (AUTO) 1.7 % (0.0-4.0); HEMATOCRIT 45.4 % (36-48); HEMOGLOBIN 14.7 g/dL (12.0-16.0); LYMPHOCYTES # (AUTO) 2.9 K/uL (1.0-5.5); LYMPHOCYTES % (AUTO) 27.1 % (20.5-51.5); MEAN CORPUSCULAR HEMOGLOBIN 30 pg (27-31); MEAN CORPUSCULAR HGB CONC 33 % (32-36); MEAN CORPUSCULAR VOLUME 91 fL (79.0-98.0); MONOCYTES # (AUTO) 0.7 K/uL (0.0-1.0); MONOCYTES % (AUTO) 6.5 % (1.7-9.3); NEUTROPHILS # (AUTO) 6.8 K/uL (1.8-7.7); NEUTROPHILS % (AUTO) 64.2 % (40.0-70.0); PLATELET COUNT (AUTO) 285 K/uL (130-430); RED CELL DISTRIBUTION WIDTH 13.6 % (9.0-15.0); WHITE BLOOD COUNT (AUTO) 10.6 K/uL (4.8-10.8)
[2022-12-24 14:08] LABS: CALCIUM 8.9 mg/dL (8.4-11.0); CREATININE 0.61 mg/dL (0.55-1.30); POTASSIUM 3.7 mmol/L (3.5-5.1)
[2022-12-24 14:13] LABS: ALBUMIN 3.4 g/dL (3.4-4.8); TOTAL BILIRUBIN 0.5 mg/dL (0.0-1.0); TOTAL PROTEIN, SERUM 7.3 g/dL (6.4-8.3)
[2022-12-24 14:26] LABS: INR 0.9 (0.8-1.2); PROTHROMBIN TIME 9.8 SECS (9.5-12.5)
[2022-12-24 15:40] LABS: BILIRUBIN,URINE NEGATIVE (NEGATIVE); BLOOD, URINE NEGATIVE (NEGATIVE); CLARITY/URINE Clear (CLEAR); GLUCOSE,URINE 1+ (NEGATIVE); KETONES,URINE NEGATIVE (NEGATIVE); NITRITE, URINE NEGATIVE (NEGATIVE); PROTEIN URINE NEGATIVE (NEGATIVE); UROBILINOGEN,URINE 0.2 (0.2-1.0)
[2022-12-24 15:45] LABS: LEUKOCYTE ESTERASE ,URINE NEGATIVE (NEGATIVE)
[2022-12-24 15:46] LABS: COLOR,URINE YELLOW (YELLOW)
[2022-12-24] MEDS ORDERED: MAGN296S8 PO (16:22)
[2022-12-24 16:40] VITALS: BP_SYST 122; PULSE 85; RESP 17; TEMP 97.6; O2SAT 99
== END 2022-12-24 16:39 | disposition home or self-care (01) ==
LOC: SED 11:30
DX: K59.00 Constipation, unspecified (principal); R10.32 Left lower quadrant pain; R11.2 Nausea with vomiting, unspecified; R53.1 Weakness; J45.909 Unspecified asthma, uncomplicated; E11.9 Type 2 diabetes mellitus without complications; I10 Essential (primary) hypertension; Z88.2 Allergy status to sulfonamides; Z91.018 Allergy to other foods; Z79.899 Other long term (current) drug therapy; Z20.822 Contact with and (suspected) exposure to COVID-19
CPT/HCPCS: 99285; 74177; 96374; 96361; 96375; 87426; 80053; 83690; 85025; 85610; 85730; 87040; 87086; 36415; 76376; 83605; 81003; J1885; J2405; Q9967; J7030